=== PATIENT | female | born 1940 | race Caucasian/White ===

== ENCOUNTER 2019-05-16 23:45 | Inpatient (IN) | payer MEDICARE ==
[~2019-05-16] VITALS: Ht 172.7 cm; Wt 77.1 kg
[2019-05-17] MEDS ORDERED: HYDR-3326 PO (00:14)
[2019-05-17] MEDS ORDERED: ACET-2154 PO (00:14)
[2019-05-17] MEDS ORDERED: OLAN15TA3 PO (00:14)
--- NOTE | 2019-05-17 00:45 | NUR ---
HAND OFF AND SBAR GIVEN TO KAITLIN SALVADOR ([facility]) PT WILL BE ADMITTED UNDER DR PONCE MRSA SWAB DONE. PT IS COMPLIANT, DENIES SI/HI, CALM AND COMPLIANT TRANSPORT TO ROOM ACCOMPANIED BY ER STAFF
[2019-05-17 02:20] VITALS: BP 147/69
--- NOTE | 2019-05-17 03:25 | NUR ---
received to care, from the emergency room, on a 72 hour hold, for gravely disabled, a transfer from [facility], in [place]. according to the hold, she came to the hospital, and appeared "grossly disorganized and psychotic". she had no viable self care plan, and was deemed by the sash installer to be unable to care for self, with out "adequate assistance". upon arrival on the unit, she was cooperative with interview, and assessment. denied si,or desire to harm self/others. pts rights book was given. pt was advised of [facility]. she stated she stays at a hotel by herself, and went to the hospital, after falling down. she denied any psychotic sx. after being interviewed, she was assisted to bed. currently appears to be asleep. no distress noted.
[2019-05-17] MEDS ORDERED: ACETAMINOPHEN 325 MG TABLET PO PRN ×2 (04:15→13:00)
[2019-05-17] MEDS ORDERED: MAG HYDROX/AL HYDROX/SIMETH 30 ML LIQUID UDC PO PRN (04:15)
[2019-05-17] MEDS ORDERED: CLONAZEPAM 0.5 MG TABLET PO PRN (04:15)
[2019-05-17] MEDS ORDERED: TEMAZEPAM 7.5 MG CAPSULE PO PRN (04:15)
--- NOTE | 2019-05-17 06:00 | NUR ---
slept 2.25 hours, total. continues to sleep. no distress noted.
[2019-05-17 07:30] VITALS: BP 164/76
[2019-05-17 16:00] VITALS: BP 122/65
[2019-05-17 20:55] VITALS: BP 121/60
--- NOTE | 2019-05-17 21:00 | NUR ---
Patient C/O lower back pain 01/24. Offered [place] 1 Tab PO PRN. Patient is alert and oriented. Cooperative and calm with care. Educated patient on her night medication. Participated in the plan of care.
[2019-05-17] MEDS: OLANZAPINE ZYDIS 5 MG TAB.RAPDIS PO SCH (21:22)
[2019-05-17] MEDS: HYDROCODONE/APAP 5-325MG TABLET PO PRN (21:30)
[2019-05-18] MEDS: HYDROCODONE/APAP 5-325MG TABLET PO PRN (06:27)
[2019-05-18 07:30] VITALS: BP 115/62
[2019-05-18 07:31] LABS: BASOPHILS % (AUTO) 0.7 % (0.0-2.0); EOSINOPHILS # (AUTO) 0.2 K/uL (0.0-0.7); EOSINOPHILS % (AUTO) 3.1 % (0.0-7.0); HEMATOCRIT 36.7 % (31.2-41.9); HEMOGLOBIN 12.3 g/dL (10.9-14.3); LYMPHOCYTES # (AUTO) 2.5 K/uL (20.0-40.0); LYMPHOCYTES % (AUTO) 39.8 % (20.5-51.5); MEAN CORPUSCULAR HEMOGLOBIN 28.5 uug (24.7-32.8); MEAN CORPUSCULAR HGB CONC 34 g/dL (32.3-35.6); MEAN CORPUSCULAR VOLUME 84.8 fL (75.5-95.3); MONOCYTES # (AUTO) 0.6 K/uL (2.0-10.0); MONOCYTES % (AUTO) 9.1 % (0.0-11.0); NEUTROPHILS % (AUTO) 47.3 % (38.5-71.5); PLATELET COUNT (AUTO) 167 K/uL (179-408); RED BLOOD CELL COUNT(AUTO) 4.32 MIL/uL (3.63-4.92); WHITE BLOOD COUNT (AUTO) 6.2 K/uL (3.8-11.8)
[2019-05-18 07:46] LABS: CREATININE 0.7 mg/dL (0.6-1.3); MAGNESIUM 1.8 mg/dL (1.8-2.4); PHOSPHOROUS 3.8 mg/dL (2.5-4.9); POTASSIUM 3.7 mmol/L (3.5-5.1)
[2019-05-18 07:51] LABS: THYROID STIMULATING HORMONE 2.121 mIU/mL (0.358-3.740)
[2019-05-18 16:00] VITALS: BP 133/71
[2019-05-18] MEDS: CIPROFLOXACIN HCL 250 MG TABLET PO SCH (17:27)
[2019-05-18] MEDS: METFORMIN HCL 500 MG TABLET PO SCH (17:28)
[2019-05-18] MEDS: OLANZAPINE ZYDIS 5 MG TAB.RAPDIS PO SCH (20:33)
[2019-05-18 20:50] VITALS: BP 144/63
[2019-05-19] MEDS: HYDROCODONE/APAP 5-325MG TABLET PO PRN ×2 (02:18→15:41)
[2019-05-19 08:05] VITALS: BP 113/65
[2019-05-19] MEDS: CIPROFLOXACIN HCL 250 MG TABLET PO SCH ×2 (08:39→16:46)
[2019-05-19] MEDS: METFORMIN HCL 500 MG TABLET PO SCH ×2 (08:39→17:20)
[2019-05-19] MEDS: MAGNESIUM HYDROXIDE 30 ML LIQUID UDC PO PRN ×2 (08:47→21:49)
[2019-05-19 15:55] VITALS: BP 135/88
[2019-05-19] MEDS: OLANZAPINE ZYDIS 5 MG TAB.RAPDIS PO SCH (20:07)
[2019-05-19 20:38] VITALS: BP 119/70
[2019-05-20] MEDS: HYDROCODONE/APAP 5-325MG TABLET PO PRN ×2 (00:13→21:12)
--- NOTE | 2019-05-20 06:48 | NUR ---
Received Pi in bed awake and A+Ox3. Expresses flat affect and depressed mood. Isolative and seclusive, remains in her room for most of the shift. Initially refused HS Zyprexa stating, "I've never taken any meds and this makes me feel so tired." Pt was educated on risks, benefits, and reportable s/e. Pt also encouraged to speak to her psychiatrist regarding her dosage and concerns. Pt took the medication after encouragement and education provided. Denies SI/HI/AH/VH. C/o constipation, prune juice and MOM provided per request. VS stable denies pain. C/o insomnia and restlessness Restoril 7.5mg administered with good effect.
[2019-05-20 07:52] VITALS: BP 121/63
[2019-05-20] MEDS: METFORMIN HCL 500 MG TABLET PO SCH ×2 (08:19→17:09)
[2019-05-20] MEDS: CIPROFLOXACIN HCL 250 MG TABLET PO SCH ×2 (08:19→17:09)
[2019-05-20 15:55] VITALS: BP 143/80
[2019-05-20] MEDS: LIDOCAINE 5% PATCH TD SCH (18:25)
[2019-05-20 20:00] VITALS: BP 147/63
[2019-05-20] MEDS: OLANZAPINE ZYDIS 5 MG TAB.RAPDIS PO SCH (21:05)
--- NOTE | 2019-05-20 22:00 | NUR ---
received to care, asleep,in bed, but easy to awaken,and pleasant upon approach. PRN norco given at 2111, for lower back pain. as of 2199, she appears to be asleep. no distress noted. will continue to monitor closely.
--- NOTE | 2019-05-21 06:00 | NUR ---
slept 8.0 hours, total. continues to sleep. no distress noted.
[2019-05-21 07:30] VITALS: BP 138/91
[2019-05-21] MEDS: METFORMIN HCL 500 MG TABLET PO SCH ×2 (08:12→17:02)
[2019-05-21] MEDS: CIPROFLOXACIN HCL 250 MG TABLET PO SCH (08:12)
[2019-05-21 16:00] VITALS: BP 149/71
[2019-05-21] MEDS: LIDOCAINE 5% PATCH TD SCH (16:58)
[2019-05-21] MEDS: HYDROCODONE/APAP 5-325MG TABLET PO PRN (18:22)
[2019-05-21] MEDS: OLANZAPINE ZYDIS 5 MG TAB.RAPDIS PO SCH (20:47)
[2019-05-21 20:57] VITALS: BP 124/61
[2019-05-22] MEDS: HYDROCODONE/APAP 5-325MG TABLET PO PRN ×2 (00:04→20:58)
--- NOTE | 2019-05-22 05:24 | NUR ---
Patient slept 5.30 hours so far. Medicated once in the night for back pain. Medication was effective. No acute distress noted and patient remains asleep at this time.
[2019-05-22 07:30] VITALS: BP 110/59
[2019-05-22] MEDS: DOCUSATE SODIUM 100 MG CAPSULE PO SCH (09:05)
[2019-05-22] MEDS: METFORMIN HCL 500 MG TABLET PO SCH ×2 (09:05→16:50)
[2019-05-22 16:00] VITALS: BP 133/87
[2019-05-22] MEDS: LIDOCAINE 5% PATCH TD SCH (16:50)
[2019-05-22] MEDS: OLANZAPINE ZYDIS 5 MG TAB.RAPDIS PO SCH (20:54)
--- NOTE | 2019-05-22 21:57 | NUR ---
PATIENT RECEIVED IN BED AWAKE. PATIENT IS ISOLATIVE/WITHDRAWN. PATIENT IS CALM AND COOPERATIVE. PATIENT IS EASILY AGITATED IS REDIRECTABLE. PATIENT COMPLAINT WITH MEDICATION. PATIENT STATES 9/10 BACK PAIN, PAIN MEDICATION GIVEN ORDERED. NO AGGRESSIVE OR COMBATIVE BEHAVIOR NOTED WILL CONTINUE TO MONITOR. BED IN LOWEST POSITION, BED LOCKED, AND BED ALARM ON WHILE IN BED.
[2019-05-23 07:30] VITALS: BP 122/65
[2019-05-23] MEDS: DOCUSATE SODIUM 100 MG CAPSULE PO SCH (08:42)
[2019-05-23] MEDS: METFORMIN HCL 500 MG TABLET PO SCH ×2 (08:42→17:07)
[2019-05-23] MEDS: LIDOCAINE 5% PATCH TD SCH (17:07)
[2019-05-23] MEDS: OLANZAPINE ZYDIS 5 MG TAB.RAPDIS PO SCH (20:32)
[2019-05-23 20:44] VITALS: BP 122/69
[2019-05-23] MEDS: HYDROCODONE/APAP 5-325MG TABLET PO PRN (20:45)
--- NOTE | 2019-05-24 06:22 | NUR ---
Patient slept 9.30 hours. Still asleep. No distress noted. No issues during the night.
[2019-05-24 07:57] VITALS: BP 121/69
[2019-05-24] MEDS: DOCUSATE SODIUM 100 MG CAPSULE PO SCH (08:56)
[2019-05-24] MEDS: METFORMIN HCL 500 MG TABLET PO SCH ×2 (08:56→17:04)
[2019-05-24 16:31] VITALS: BP 120/57
[2019-05-24] MEDS: LIDOCAINE 5% PATCH TD SCH (17:04)
[2019-05-24] MEDS: MAGNESIUM HYDROXIDE 30 ML LIQUID UDC PO PRN (20:23)
[2019-05-24] MEDS: OLANZAPINE ZYDIS 5 MG TAB.RAPDIS PO SCH (20:23)
[2019-05-24 20:45] VITALS: BP 113/63
[2019-05-24] MEDS: HYDROCODONE/APAP 5-325MG TABLET PO PRN (22:56)
--- NOTE | 2019-05-25 06:15 | NUR ---
Patient slept 6.3 hours . Still sleeping. No distress during the night.
[2019-05-25 07:53] VITALS: BP 131/61
[2019-05-25] MEDS: METFORMIN HCL 500 MG TABLET PO SCH ×2 (08:51→17:09)
[2019-05-25] MEDS: DOCUSATE SODIUM 100 MG CAPSULE PO SCH (08:51)
[2019-05-25] MEDS: LIDOCAINE 5% PATCH TD SCH (16:29)
[2019-05-25 16:50] VITALS: BP 143/70
[2019-05-25 20:21] VITALS: BP 147/69
[2019-05-25] MEDS: OLANZAPINE ZYDIS 5 MG TAB.RAPDIS PO SCH (20:27)
[2019-05-25] MEDS: HYDROCODONE/APAP 5-325MG TABLET PO PRN (20:37)
--- NOTE | 2019-05-25 22:52 | NUR ---
RECEIVED PATIENT IN BED AWAKE. PATIENT IS ISOLATIVE,WITHDRAWN BUT CALM AND COOPERATIVE. OCCASIONALLY IRRITATED BUT RE DIRECTABLE. SHE IS COMPLAINT WITH MEDICATION.COMPLAINED OF LOWER BACK ACHE RATED 5/10 AND REQUESTED FOR NORCO. SAME GIVEN ORDERED WITH FAIRLY GOOD EFFECT. VISUAL CHECKS MADE ON HER FOR SAFETY. WILL CONTINUE TO MONITOR. BED IN LOWEST POSITION, BED LOCKED, AND BED ALARM ON WHILE IN BED.
--- NOTE | 2019-05-26 06:40 | NUR ---
SLEPT APPROX.08;30 HOURS
[2019-05-26 07:30] VITALS: BP 111/62
[2019-05-26] MEDS: DOCUSATE SODIUM 100 MG CAPSULE PO SCH (09:12)
[2019-05-26] MEDS: METFORMIN HCL 500 MG TABLET PO SCH ×2 (09:13→18:24)
[2019-05-26 15:54] VITALS: BP 146/86
[2019-05-26] MEDS: MAGNESIUM HYDROXIDE 30 ML LIQUID UDC PO PRN (16:28)
[2019-05-26] MEDS: LIDOCAINE 5% PATCH TD SCH (16:29)
[2019-05-26] MEDS: OLANZAPINE ZYDIS 5 MG TAB.RAPDIS PO SCH (20:08)
[2019-05-26] MEDS: HYDROCODONE/APAP 5-325MG TABLET PO PRN (21:14)
[2019-05-26 22:38] VITALS: BP 139/72
--- NOTE | 2019-05-27 06:47 | NUR ---
END OF SHIFT REPORT Transfer to 325 as GPS overflow with 1:1 sitter at bedside; pt slept well in between care; c/o pain x1 and [place] given; pt requested for restoril and slept 5 hours and 45 mins; assisted to meet hygiene needs; continue to monitor;
[2019-05-27] MEDS: METFORMIN HCL 500 MG TABLET PO SCH ×2 (08:29→18:58)
[2019-05-27] MEDS: DOCUSATE SODIUM 100 MG CAPSULE PO SCH (08:29)
--- NOTE | 2019-05-27 09:40 | NUR ---
Patient is AO2-3, no distress, cooperative with treatment, 1:1 sitter at bedside; continue to monitor;
[2019-05-27 11:31] VITALS: BP 112/61
--- NOTE | 2019-05-27 12:14 | NUR ---
FIREARMS REPORT: Material Specialist completed and submitted a [employer] firearms report for [address] Disability certification. A copy of report has been placed in patient chart.
[2019-05-27 16:03] VITALS: BP 115/51
[2019-05-27] MEDS: LIDOCAINE 5% PATCH TD SCH (16:15)
[2019-05-27 19:28] VITALS: BP 120/49
[2019-05-27] MEDS ORDERED: DEXTROSE 50% 50 ML DISP.SYRIN IV PRN (19:30)
--- NOTE | 2019-05-27 20:00 | NUR ---
Patient received awake in bed, resting comfortably with 1:1 sitter in room. Patient is alert/oriented x3 and is complaining of 6/10 pain related to her diagnosis of chronic back pain. All safety and fall precaution measures are in place. Will continue to monitor.
--- NOTE | 2019-05-27 20:30 | NUR ---
Independent living communications consultant is here, at request of SW, to evaluate patient for placement in assisted living/independent living facility.
[2019-05-27] MEDS: HYDROCODONE/APAP 5-325MG TABLET PO PRN (21:25)
[2019-05-27] MEDS: OLANZAPINE ZYDIS 5 MG TAB.RAPDIS PO SCH (21:25)
[2019-05-27] MEDS: BLOOD SUGAR DIAGNOSTIC 1 EACH STRIP VI SCH (21:31)
--- NOTE | 2019-05-27 22:40 | NUR ---
Diet changed from Regular to CCHO 60gm protein due to diagnosis of diabetes mellitus.
[2019-05-28] MEDS: BLOOD SUGAR DIAGNOSTIC 1 EACH STRIP VI SCH ×4 (06:24→20:32)
--- NOTE | 2019-05-28 07:00 | NUR ---
Patient slept comfortably throughout night with 1:1 sitter at bedside. Complaint of pain was addressed with prescribed analgesics. Patient was compliant with all aspects of care and medication regimen. All safety and fall precaution measures remain in place. .
--- NOTE | 2019-05-28 07:18 | NUR ---
Received patient in bed, asleep and easy to wake up . Denies sob or pain at this time. All needs met. Safety and fall precautions in place. Call light in reach, bed in low position and locked. Will continue to monitor.
[2019-05-28 07:20] VITALS: BP 104/55
[2019-05-28] MEDS ORDERED: METFORMIN HCL 500 MG TABLET PO SCH (08:00)
[2019-05-28] MEDS: DOCUSATE SODIUM 100 MG CAPSULE PO SCH (09:30)
[2019-05-28] MEDS: METFORMIN HCL 500 MG TABLET PO SCH ×2 (09:30→16:56)
--- NOTE | 2019-05-28 10:58 | NUR ---
Discharge Planning: Patient was evaluated by Assisted Living placement Agency - [facility] [[phone]]. Per Admissions - Eduardo, patient was accepted for Assisted Living Placement at [facility] [[address] [place] [address]]. Patient scheduled for tentative dc tomorrow at 11:00a. Gayathri, Director [[phone]] at [facility], will be ready to receive patient. This radio script writer informed nursing - Mary Jane and darrick request for home health referral.
[2019-05-28 15:00] VITALS: BP 113/55
[2019-05-28] MEDS: LIDOCAINE 5% PATCH TD SCH (16:56)
[2019-05-28] MEDS: INSULIN REGULAR, HUMAN 300 UNIT/3 ML VIAL SQ PRN ×2 (17:00→20:42)
--- NOTE | 2019-05-28 18:45 | NUR ---
At this time patient brought down to room 139B. Patient AAOX4. placed in bed with assistance. Addendum: 05/28/19 at 1858 by SHANTEL WOLFE RN Care plan will be endorse to incoming shift.
--- NOTE | 2019-05-28 18:49 | NUR ---
PATIENT TRANSFERED TO [facility]. REPORT GIVEN TO DARLING.
[2019-05-28 19:51] VITALS: BP 147/69
[2019-05-28] MEDS: OLANZAPINE ZYDIS 5 MG TAB.RAPDIS PO SCH (20:06)
[2019-05-28] MEDS: HYDROCODONE/APAP 5-325MG TABLET PO PRN (20:49)
--- NOTE | 2019-05-28 22:12 | NUR ---
Received patient in bed, asleep but easily arouse to touch and sound. calm and cooperative. med compliant. no behavioral issue at this time. will continue to monitor patient safety.
--- NOTE | 2019-05-29 05:44 | NUR ---
Patient slept 7 hours last night, no behavior issue.
[2019-05-29] MEDS: BLOOD SUGAR DIAGNOSTIC 1 EACH STRIP VI SCH ×2 (06:34→12:16)
[2019-05-29 07:30] VITALS: BP 136/65
--- NOTE | 2019-05-29 08:11 | NUR ---
Discharge note Patient will be discharged to [facility] [[address] [place] [address]; Ph. [phone]]. Transportation will be provided via [employer] [id number] service [[phone]] at 11:00am. Patient is alert and oriented x3-4, denies any suicidal or homicidal ideation, and is aware and agreeable with discharge plan. Patient has no next of kin to identify. However, patient�s belongings are currently located at a [facility] in [place]. Sanitation Manager called [facility] logistics administrator- Sue [[phone]] who is aware of patient�s next destination and agreed to bring belongings to patient. Home health referral was submitted to different home health facilities [[facility], [facility], and [facility], but patient does not have coverage. Patient was provided with referral [facility] [ [place] [address]; ]. Patient was also provided with contact information for Medicare & Social Security [ ].
[2019-05-29] MEDS: DOCUSATE SODIUM 100 MG CAPSULE PO SCH (08:17)
[2019-05-29] MEDS: METFORMIN HCL 500 MG TABLET PO SCH (08:17)
[2019-05-29] MEDS: INSULIN REGULAR, HUMAN 300 UNIT/3 ML VIAL SQ PRN (12:21)
--- NOTE | 2019-05-29 14:30 | NUR ---
Patient is discharged via set transportation, belongings given and dc papers signed. Took patient outside via wheel chair Patient condition is Stable
== END 2019-05-29 14:30 | disposition home health service (06) | DRG 885 ==
LOC: ER 23:51 → GPS 05-17 01:00 → ER 05-17 01:14 → GPS 05-22 20:22 → MEDSURG3 05-26 20:44 → GPSOV3 05-26 21:20 → GPS 05-28 18:24
PROVIDERS: ADMIT Psychiatry & Neurology Psychiatry; ATTEND Registered Nurse
DX: F20.0 Paranoid schizophrenia (principal); E11.65 Type 2 diabetes mellitus with hyperglycemia; N39.0 Urinary tract infection, site not specified; Z59.0 Homelessness; M79.7 Fibromyalgia; G89.29 Other chronic pain; D69.6 Thrombocytopenia, unspecified; Z87.440 Personal history of urinary (tract) infections
CPT/HCPCS: 36415; 83735; 84100; 84443; 85025; A4663; J1815

== ENCOUNTER 2021-08-16 20:46 | Inpatient (IN) | payer MEDICARE, OTHER ==
[~2021-08-16] VITALS: Ht 162.6 cm; Wt 80.3 kg
[~2021-08-16 20:46] MED LIST: ACET-2154 PO; HYDR-3326 PO
[2021-08-16] MEDS ORDERED: Z GUARD REMEDY PASTE 57 GM TUBE TOP PRN (21:00)
[2021-08-16] MEDS ORDERED: BISA10SU61 RC (21:12)
[2021-08-16] MEDS ORDERED: MAG30ORA14 PO (21:26)
[2021-08-16] MEDS ORDERED: INSU100V28 SQ (21:26)
[2021-08-16] MEDS ORDERED: DEXT50DI8 IV (21:26)
[2021-08-16] MEDS ORDERED: HYDR-4209 PO (21:26)
[2021-08-16] MEDS ORDERED: HYDR-4075 PO (21:26)
[2021-08-16] MEDS ORDERED: MAGN400O6 PO (21:26)
[2021-08-16] MEDS ORDERED: BLOO-668 IN (21:26)
[2021-08-16] MEDS ORDERED: NORM50IV2 IV (21:26)
[2021-08-16] MEDS ORDERED: DOCU-141 PO (21:26)
[2021-08-16] MEDS ORDERED: SENN-18 PO (21:26)
[2021-08-16] MEDS ORDERED: ONDA4TAB11 PO (21:26)
[2021-08-16] MEDS ORDERED: CEFT1VIA15 IV (21:26)
[2021-08-16] MEDS ORDERED: VALS160T2 PO (21:26)
[2021-08-16] MEDS ORDERED: ZOLP5TAB2 PO (21:26)
[2021-08-16] MEDS ORDERED: ENOX40DI SQ (21:26)
[2021-08-16] MEDS ORDERED: PANT40TA2 PO (21:26)
[2021-08-16 21:31] VITALS: BP 142/58
--- NOTE | 2021-08-16 22:28 | NUR ---
Pt arrived in the unit for rehab admission at 2039 from [facility] via gurney. Admitting Dx: R hip fx, s/p R hip closed percutaneous pinning on 08/13/2021. On 2L O2 via NC, no acute distress noted. Denies pain/ discomfort at this time. Pt has x1 right hip surgical incision, no discharge noted. Dressing changed. Pt has Harrell catheter in place. Notified Dr. Bansal of admission. Notified Dr. Ng and requested for Digital Reasoning and MD stated that he will do it. Safety measures maintained. Bed alarm on. Call light within reach. Will continue to monitor.
[2021-08-16] MEDS ORDERED: BISACODYL 10 MG SUPP.RECT RC PRN (23:00)
[2021-08-16] MEDS ORDERED: HYDROCODONE/APAP 5-325MG TABLET PO PRN (23:00)
[2021-08-16] MEDS ORDERED: CEFTRIAXONE 1 G in IV DEXTROSE 5% 50 ML IV SCH (23:00)
[2021-08-16] MEDS ORDERED: DEXTROSE 50% 50 ML DISP.SYRIN IV SCH (23:00)
[2021-08-16] MEDS ORDERED: ONDANSETRON ODT 4 MG TAB.RAPDIS SL PRN (23:00)
[2021-08-16] MEDS ORDERED: ACETAMINOPHEN 325 MG TABLET-SA PATIENTS-PAIN ONLY PO PRN (23:00)
[2021-08-16] MEDS: DOCUSATE SODIUM 100 MG CAPSULE PO SCH (23:26)
[2021-08-16] MEDS: BLOOD SUGAR DIAGNOSTIC 1 EACH STRIP VI SCH (23:26)
[2021-08-16] MEDS ORDERED: INSULIN REGULAR, HUMAN 300 UNIT/3 ML VIAL SQ PRN (23:30)
[2021-08-16] MEDS: ENOXAPARIN SODIUM 40 MG/0.4 ML DISP.SYRIN SQ SCH (23:33)
[2021-08-16] MEDS ORDERED: DEXTROSE 50% 50 ML DISP.SYRIN IV PRN (23:45)
[2021-08-16] MEDS: INSULIN REGULAR, HUMAN 300 UNIT/3 ML VIAL SQ PRN (23:59)
[2021-08-17] MEDS: HYDROCODONE/APAP 5-325MG TABLET PO PRN ×3 (00:13→23:26)
[2021-08-17 04:15] VITALS: BP 118/50
[2021-08-17] MEDS: PANTOPRAZOLE SODIUM 40 MG TABLET.DR PO SCH ×2 (06:10→06:12)
[2021-08-17] MEDS: BLOOD SUGAR DIAGNOSTIC 1 EACH STRIP VI SCH ×4 (06:31→20:17)
[2021-08-17 06:53] LABS: HEMATOCRIT 35.2 % (31.2-41.9); MEAN CORPUSCULAR HEMOGLOBIN 29.1 uug (24.7-32.8); MEAN CORPUSCULAR VOLUME 86.3 fL (75.5-95.3); PLATELET COUNT (AUTO) 171 K/uL (179-408)
[2021-08-17 07:26] LABS: THYROID STIMULATING HORMONE 1.346 mIU/mL (0.358-3.740)
[2021-08-17] MEDS ORDERED: BLOOD SUGAR DIAGNOSTIC 1 EACH STRIP VI SCH (07:30)
[2021-08-17] MEDS ORDERED: PANTOPRAZOLE SODIUM 40 MG TABLET.DR PO SCH (07:30)
[2021-08-17 07:43] LABS: BILIRUBIN,TOTAL 0.6 mg/dL (0.2-1.0); CREATININE 0.8 mg/dL (0.6-1.3); MAGNESIUM 2.1 mg/dL (1.8-2.4); PHOSPHOROUS 3.6 mg/dL (2.5-4.9); POTASSIUM 3.9 mmol/L (3.5-5.1); TOTAL PROTEIN, SERUM 6.9 g/dL (6.4-8.2)
[2021-08-17 07:52] VITALS: BP 125/53
[2021-08-17] MEDS: CEFTRIAXONE 1 G in IV DEXTROSE 5% 50 ML IV SCH (08:30)
--- NOTE | 2021-08-17 08:30 | NUR ---
Receive PT resting in bed AAOx4 Dx: R hip fx, s/p R hip closed percutaneous pinning on 08/13/2021. On 2L O2 via NC, no acute distress noted 02 sat 99 %. C/O of pain/ at this time. Pt has x1 right hip surgical incision, no discharge noted. Dressing intact Pt has Harrell catheter in place draining well . Safety measures maintained. Bed alarm on. Call light within reach. Will continue to monitor.
[2021-08-17] MEDS: VALSARTAN 160 MG TABLET PO SCH (08:31)
[2021-08-17] MEDS: DOCUSATE SODIUM 100 MG CAPSULE PO SCH ×2 (08:31→20:10)
[2021-08-17] MEDS: INSULIN REGULAR, HUMAN 300 UNIT/3 ML VIAL SQ PRN ×3 (12:12→20:19)
[2021-08-17] MEDS: SENNOSIDES 1 TABLET PO PRN (12:50)
--- NOTE | 2021-08-17 15:08 | NUR ---
INTERDISCIPLINARY TEAM CONFERENCE
[2021-08-17 16:00] VITALS: BP 122/52
--- NOTE | 2021-08-17 18:28 | NUR ---
patient remained stable through the shift. continue on 02 @ 2L/MIN via nc. 02 sating 99%.F/C in place draining well Assisted with all her needs. Kept call light within reach. All due meds given medicated with senna x 1 . No distress identified. Safety measures maintained. No pain identified. Will endorse to the next shift for continuity of care.
[2021-08-17 20:05] VITALS: BP 127/58
[2021-08-17] MEDS: ENOXAPARIN SODIUM 40 MG/0.4 ML DISP.SYRIN SQ SCH (20:11)
[2021-08-18] MEDS: ZOLPIDEM 5 MG TABLET PO PRN ×2 (00:53→21:22)
[2021-08-18 04:13] VITALS: BP 120/65
[2021-08-18] MEDS: PANTOPRAZOLE SODIUM 40 MG TABLET.DR PO SCH (06:33)
[2021-08-18] MEDS: BLOOD SUGAR DIAGNOSTIC 1 EACH STRIP VI SCH ×4 (06:34→20:16)
--- NOTE | 2021-08-18 06:41 | NUR ---
Pt slept throughout the night, easily arousable for care and able to make needs known. On O2 at 2lpm via NC saturating at 95%. Medicated pain x1 and noted effective. Ambien PRN also given. All needs attended. Call light placed within reach. Frequent visual checks done. Will endorse to next shift for continuity of care.
[2021-08-18 08:00] VITALS: BP 121/53
[2021-08-18] MEDS: DOCUSATE SODIUM 100 MG CAPSULE PO SCH ×2 (09:30→20:08)
[2021-08-18] MEDS: CYANOCOBALAMIN 1000 MCG/ML VIAL IM SCH (09:30)
[2021-08-18] MEDS: CEFTRIAXONE 1 G in IV DEXTROSE 5% 50 ML IV SCH (09:31)
[2021-08-18] MEDS: VALSARTAN 160 MG TABLET PO SCH (09:32)
[2021-08-18] MEDS: HYDROCODONE/APAP 5-325MG TABLET PO PRN (10:35)
[2021-08-18] MEDS: INSULIN REGULAR, HUMAN 300 UNIT/3 ML VIAL SQ PRN ×3 (12:06→20:18)
[2021-08-18 16:00] VITALS: BP 96/54
[2021-08-18 20:00] VITALS: BP 135/52
[2021-08-18] MEDS: OLANZAPINE 5 MG TABLET PO SCH (20:08)
[2021-08-18] MEDS: ENOXAPARIN SODIUM 40 MG/0.4 ML DISP.SYRIN SQ SCH (20:10)
[2021-08-19] MEDS: MAGNESIUM HYDROXIDE 30 ML LIQUID UDC PO PRN (00:18)
[2021-08-19] MEDS: HYDROCODONE/APAP 5-325MG TABLET PO PRN ×4 (00:18→21:37)
[2021-08-19 04:25] VITALS: BP 119/47
--- NOTE | 2021-08-19 05:17 | NUR ---
Pt slept intermittently throughout the night, easily arousable for care and able to make needs known. On room air saturating at 95%. Medicated pain x1 and noted effective. MOM PRN given, no bowel movement noted yet. All needs attended. Call light placed within reach. Frequent visual checks done. Will endorse to next shift for continuity of care. Addendum: 08/19/21 at 0733 by CIRO VILLASENOR RN Initial saturation 90%, picks up quickly to 95-96%.
[2021-08-19] MEDS: PANTOPRAZOLE SODIUM 40 MG TABLET.DR PO SCH (06:33)
[2021-08-19] MEDS: BLOOD SUGAR DIAGNOSTIC 1 EACH STRIP VI SCH ×4 (06:33→20:39)
[2021-08-19 07:31] VITALS: BP 130/55
[2021-08-19] MEDS: DOCUSATE SODIUM 100 MG CAPSULE PO SCH ×2 (08:41→20:25)
[2021-08-19] MEDS: VALSARTAN 160 MG TABLET PO SCH (08:42)
[2021-08-19] MEDS: CYANOCOBALAMIN 1000 MCG/ML VIAL IM SCH (08:42)
[2021-08-19] MEDS: INSULIN REGULAR, HUMAN 300 UNIT/3 ML VIAL SQ PRN ×2 (11:47→20:41)
--- NOTE | 2021-08-19 14:02 | NUR ---
INDIVIDUALIZED PLAN OF CARE
[2021-08-19 15:30] VITALS: BP 122/78
--- NOTE | 2021-08-19 18:30 | NUR ---
Patient remains alert, oriented x4, not in any form of distress, on room air. She complained of pain on the right hip, given PRN pain medication as ordered with noted relief. Patient participated with PT and OT. Assisted with her needs promptly. Call light and frequently used items placed within patient's reach.
[2021-08-19] MEDS: OLANZAPINE 5 MG TABLET PO SCH (20:25)
[2021-08-19] MEDS: ENOXAPARIN SODIUM 40 MG/0.4 ML DISP.SYRIN SQ SCH (20:26)
[2021-08-19 20:52] VITALS: BP 139/57
[2021-08-20 04:47] VITALS: BP 156/59
--- NOTE | 2021-08-20 06:24 | NUR ---
Received pt awake on bed with no respiratory distress noted. Dulcolax supp given at start of shift, BM x1 noted. Medicated pain x1 and noted effective. All needs attended. Call light placed within reach. Frequent visual checks done. Will endorse to next shift for continuity of care.
--- NOTE | 2021-08-20 06:32 | NUR ---
On room air saturating at 95%, would go down to 90-91% but picks up right away.
[2021-08-20] MEDS: PANTOPRAZOLE SODIUM 40 MG TABLET.DR PO SCH (06:34)
[2021-08-20] MEDS: BLOOD SUGAR DIAGNOSTIC 1 EACH STRIP VI SCH ×4 (06:34→21:13)
[2021-08-20 08:00] VITALS: BP 162/61
[2021-08-20] MEDS: CYANOCOBALAMIN 1000 MCG/ML VIAL IM SCH (08:48)
[2021-08-20] MEDS: DOCUSATE SODIUM 100 MG CAPSULE PO SCH ×3 (08:48→21:16)
[2021-08-20] MEDS: VALSARTAN 160 MG TABLET PO SCH (08:51)
[2021-08-20] MEDS: INSULIN REGULAR, HUMAN 300 UNIT/3 ML VIAL SQ PRN ×4 (08:53→21:15)
[2021-08-20] MEDS: HYDROCODONE/APAP 5-325MG TABLET PO PRN ×2 (11:42→22:47)
[2021-08-20 12:02] VITALS: BP 91/40
[2021-08-20 15:56] VITALS: BP 112/45
[2021-08-20 20:15] VITALS: BP 143/62
[2021-08-20] MEDS: OLANZAPINE 5 MG TABLET PO SCH (21:16)
[2021-08-20] MEDS: ENOXAPARIN SODIUM 40 MG/0.4 ML DISP.SYRIN SQ SCH (21:17)
--- NOTE | 2021-08-20 23:11 | NUR ---
Patient awake and able to make needs known. no respiratory distress noted. C/o rt hip pain Medicated pain x1 and noted effective. Rt hip dressing changed.No bleeding noted.F/c draining well with yellow urine output.All needs attended. Call light placed within reach. Will endorse to next shift for continuity of care.
[2021-08-21 04:12] VITALS: BP 128/54
[2021-08-21] MEDS: PANTOPRAZOLE SODIUM 40 MG TABLET.DR PO SCH (06:33)
[2021-08-21] MEDS: BLOOD SUGAR DIAGNOSTIC 1 EACH STRIP VI SCH ×4 (06:36→21:17)
[2021-08-21] MEDS: DOCUSATE SODIUM 100 MG CAPSULE PO SCH ×2 (10:09→21:08)
[2021-08-21] MEDS: CYANOCOBALAMIN 1000 MCG/ML VIAL IM SCH (10:10)
[2021-08-21] MEDS: VALSARTAN 160 MG TABLET PO SCH (10:10)
[2021-08-21] MEDS: HYDROCODONE/APAP 5-325MG TABLET PO PRN (10:24)
[2021-08-21 12:00] VITALS: BP 120/51
[2021-08-21 16:42] VITALS: BP 129/60
--- NOTE | 2021-08-21 19:00 | NUR ---
Patient with acosta catheter, draining clear yellow urine.
--- NOTE | 2021-08-21 19:00 | NUR ---
Received patient awake in bed. AOX4. IV on L hand patent and intact. On room air, saturating at 92%. Patient denies chest pain, SOB or dizziness, however report pain of 3/10 on right hip, pt refused to take medication, diverted to non-pharmacological techniques instead. Right hip dressing clean and intact. HS accuchek done, showing results of 135mg/dl, patient refused to insulin. Safety precautions and safety measures initiated. Bed in locked, call light button and frequently used medications within reach. Will continue to monitor.
[2021-08-21 20:09] VITALS: BP 145/58
[2021-08-21] MEDS: OLANZAPINE 5 MG TABLET PO SCH (21:08)
[2021-08-21] MEDS: ENOXAPARIN SODIUM 40 MG/0.4 ML DISP.SYRIN SQ SCH (21:09)
[2021-08-21] MEDS: INSULIN REGULAR, HUMAN 300 UNIT/3 ML VIAL SQ PRN (21:19)
[2021-08-22 04:12] VITALS: BP 119/48
[2021-08-22] MEDS: PANTOPRAZOLE SODIUM 40 MG TABLET.DR PO SCH (06:45)
[2021-08-22] MEDS: BLOOD SUGAR DIAGNOSTIC 1 EACH STRIP VI SCH ×4 (06:57→20:03)
--- NOTE | 2021-08-22 07:05 | NUR ---
Asked patient if she wants her acosta catheter removed and be switched to a diaper. Patient refused despite being taught the risk factors of having a prolonged acosta catheter. Endorsed to the day shift.
--- NOTE | 2021-08-22 07:05 | NUR ---
Patient advised she took a medication to help with her constipation. Patient advised that it is the only medication that will help with her bowel movement. Medication is [place], she takes 2 pills a day. Endorsed to day shift to notify doctor.
--- NOTE | 2021-08-22 07:05 | NUR ---
Patient slept through the night with no complaints. All due medications were given as ordered. All needs were attended to and met. Accuchek taken, showing results of 141mg/dl. Safety precautions and comfort measures maintained. Will endorse to day shift.
--- NOTE | 2021-08-22 07:45 | NUR ---
RECEIVED PATIENT IN BED AWAKE ALERT AND ORIENTED DENIES PAIN OR DISCOMFORTS AT THIS TIME ON ROOM AIR WITH NO SHORTNESS OF BREATH CALL LIGHTS AND PERSONAL BELONGINGS ARE WITHIN EASY REACH BLOOD SUGAR THIS AM IS 141 WHICH CALLS FOR SLIDING SCALE COVERAGE WITH REGULAR INSULIN BUT PATIENT REFUSED COVERAGE ORDERED.PATIENTS RIGHT TO REFUSE RESPECTED WILL OBSERVE FOR S/S OF HYPERGLYCEMIC REACTIONS.
[2021-08-22 07:57] VITALS: BP 144/59
[2021-08-22] MEDS: VALSARTAN 160 MG TABLET PO SCH (08:45)
[2021-08-22] MEDS: DOCUSATE SODIUM 100 MG CAPSULE PO SCH ×2 (08:45→20:01)
[2021-08-22] MEDS: CYANOCOBALAMIN 1000 MCG/ML VIAL IM SCH (08:45)
[2021-08-22] MEDS: HYDROCODONE/APAP 5-325MG TABLET PO PRN (09:31)
--- NOTE | 2021-08-22 09:40 | NUR ---
DR SPRING HERE TO SEE AND EXAMINE PATIENT WITH NO NEW ORDERS AT THIS TIME.
[2021-08-22 15:09] VITALS: BP 128/59
--- NOTE | 2021-08-22 18:00 | NUR ---
PATIENT PARTICIPATED IN THERAPY EXERCISES ORDERED ALERT AND COOPERATIVE WITH NO C/O PAIN AT THIS TIME.
[2021-08-22 20:00] VITALS: BP 131/58
[2021-08-22] MEDS: OLANZAPINE 5 MG TABLET PO SCH (20:01)
[2021-08-22] MEDS: INSULIN REGULAR, HUMAN 300 UNIT/3 ML VIAL SQ PRN (20:02)
[2021-08-22] MEDS: ENOXAPARIN SODIUM 40 MG/0.4 ML DISP.SYRIN SQ SCH (20:03)
[2021-08-23 04:20] VITALS: BP 119/53
[2021-08-23] MEDS: PANTOPRAZOLE SODIUM 40 MG TABLET.DR PO SCH (06:32)
[2021-08-23] MEDS: BLOOD SUGAR DIAGNOSTIC 1 EACH STRIP VI SCH ×4 (06:33→20:30)
[2021-08-23 07:30] VITALS: BP 113/50
[2021-08-23] MEDS: DOCUSATE SODIUM 100 MG CAPSULE PO SCH ×2 (08:36→20:33)
[2021-08-23] MEDS: CYANOCOBALAMIN 1000 MCG/ML VIAL IM SCH (08:36)
[2021-08-23] MEDS: VALSARTAN 160 MG TABLET PO SCH (09:01)
[2021-08-23] MEDS: HYDROCODONE/APAP 5-325MG TABLET PO PRN (10:06)
[2021-08-23] MEDS: FUROSEMIDE 20 MG TABLET PO SCH (10:06)
--- NOTE | 2021-08-23 10:06 | NUR ---
PATIENT IS AWAKE ALERT AND VERBALISED NEEDS REQUESTED FOR NORCO FOR PAIN STATED THAT THE THERAPIST WILL BE HERE FOR HER PHYSICAL THERAPEUTIC EXERCISES ABOUT 1100 MEDICATED ORDERED RIGHT HIP REMAINS INTACT WITH NO DRAINAGE SANDERSON CATHETER REMAINS INTACT DISCUSSION WITH PATIENT REGARDING REMOVING CATH TO SEE IF SHE COULD VOID STATED NOT TODAY WILL CONSIDER TOMORROW WILL ENDORSE TO ASK THE DOCTOR TOMORROW FOR OKAY TO REMOVE CATH.CALL LIGHTS AND PERSONAL BELONGINGS ARE WITHIN EASY REACH AT THIS TIME WILL CONTINUE TO OBSERVE.
[2021-08-23 16:00] VITALS: BP 118/44
--- NOTE | 2021-08-23 17:28 | NUR ---
RESTING IN ROOM DENIES DISCOMFORTS BLOOD SUGAR IS 143 REFUSED REGULAR INSULIN COVERAGE PER SLIDING SCALE NO S/S OF HYPERGLYCEMIC REACTIONS AT THIS TIME WILL CONTINUE TO OBSERVE.
[2021-08-23 19:59] VITALS: BP 104/47
[2021-08-23] MEDS: OLANZAPINE 5 MG TABLET PO SCH (20:29)
[2021-08-23] MEDS: ENOXAPARIN SODIUM 40 MG/0.4 ML DISP.SYRIN SQ SCH (20:30)
[2021-08-23] MEDS: INSULIN REGULAR, HUMAN 300 UNIT/3 ML VIAL SQ PRN (20:39)
[2021-08-24] MEDS: ZOLPIDEM 5 MG TABLET PO PRN (01:50)
[2021-08-24] MEDS: ACETAMINOPHEN 325 MG TABLET PO PRN (01:51)
[2021-08-24 04:28] VITALS: BP 102/45
[2021-08-24] MEDS: PANTOPRAZOLE SODIUM 40 MG TABLET.DR PO SCH (06:01)
[2021-08-24] MEDS: BLOOD SUGAR DIAGNOSTIC 1 EACH STRIP VI SCH ×4 (06:02→20:20)
--- NOTE | 2021-08-24 06:41 | NUR ---
No significant changes overnight. Pt remains AxO x4, cooperative with care. On RA, VSS, afebrile. Tylenol PO given x1 for mild pain with relief. F/C intact and patent. Pt assisted with turning and repositioning. All needs attended, safety precautions maintained at all times. No acute distress noted. Call light within reach.
[2021-08-24 07:30] VITALS: BP 122/50
[2021-08-24] MEDS: INSULIN REGULAR, HUMAN 300 UNIT/3 ML VIAL SQ PRN ×4 (08:13→20:25)
[2021-08-24] MEDS: CYANOCOBALAMIN 1000 MCG/ML VIAL IM SCH (08:14)
[2021-08-24] MEDS: DOCUSATE SODIUM 100 MG CAPSULE PO SCH ×2 (08:15→20:14)
[2021-08-24] MEDS: VALSARTAN 160 MG TABLET PO SCH (08:17)
--- NOTE | 2021-08-24 08:56 | NUR ---
INTERDISCIPLINARY TEAM CONFERENCE
[2021-08-24] MEDS: HYDROCODONE/APAP 5-325MG TABLET PO PRN ×2 (09:44→13:45)
--- NOTE | 2021-08-24 09:49 | NUR ---
Patient awake, alert 0riented x 4 .Patient compliant with medication and care.C/O of pain at right hip pain medicated with pain med as order. On room air, Harrell catheter draining well. incontinent of BM good pericare provided and skin care. Changed and repositioned.Rt hip percutaneous pinning with dressing in place.No bleeding noted.Dressing change done. Safety measures in place, call light within reach. up with PT
[2021-08-24] MEDS ORDERED: HYDROCODONE/APAP 10-325 MG TABLET PO SCH (14:30)
[2021-08-24 16:00] VITALS: BP 107/46
--- NOTE | 2021-08-24 19:25 | NUR ---
Patient resting in bed, AO x 4, able to state all needs. On room air. Gave pt prune juice to help with BM. F/C intact and draining. No complaints or signs of acute distress at this time. Call lights within reach, safety measures initiated. Belongings place by bedside within reach.
[2021-08-24] MEDS: OLANZAPINE 5 MG TABLET PO SCH (20:13)
[2021-08-24] MEDS: ENOXAPARIN SODIUM 40 MG/0.4 ML DISP.SYRIN SQ SCH (20:16)
[2021-08-24] MEDS: MAGNESIUM HYDROXIDE 30 ML LIQUID UDC PO PRN (20:50)
[2021-08-24 20:54] VITALS: BP 101/55
[2021-08-25 04:00] VITALS: BP 118/56
[2021-08-25] MEDS: ACETAMINOPHEN 325 MG TABLET PO PRN ×2 (04:30→06:18)
[2021-08-25] MEDS: BLOOD SUGAR DIAGNOSTIC 1 EACH STRIP VI SCH ×4 (06:22→20:01)
[2021-08-25] MEDS: PANTOPRAZOLE SODIUM 40 MG TABLET.DR PO SCH (06:34)
[2021-08-25 07:43] VITALS: BP 100/44
[2021-08-25] MEDS: CYANOCOBALAMIN 1000 MCG/ML VIAL IM SCH (08:07)
[2021-08-25] MEDS: DOCUSATE SODIUM 100 MG CAPSULE PO SCH ×2 (08:07→20:01)
[2021-08-25] MEDS: HYDROCODONE/APAP 10-325 MG TABLET PO SCH ×3 (08:07→13:46)
[2021-08-25] MEDS: FUROSEMIDE 20 MG TABLET PO SCH (08:08)
[2021-08-25] MEDS: INSULIN REGULAR, HUMAN 300 UNIT/3 ML VIAL SQ PRN ×3 (08:17→16:48)
[2021-08-25] MEDS: VALSARTAN 160 MG TABLET PO SCH (09:00)
[2021-08-25 15:52] VITALS: BP 120/62
[2021-08-25 15:54] VITALS: BP 120/62
--- NOTE | 2021-08-25 18:18 | NUR ---
The patient remained stable during the shift. No acute distress . Medicated with Ada 5/325 BID at 0800 and 1300 ATC as per ordered for pain meds effective up in W/C and ambulated with PT had a shower today, Harrell catheter draining well yellow color urine. Kept call light within reach. Safety precaution maintained. All due meds given. All needs attended. Endorsed to the next shift for continuity of care.
--- NOTE | 2021-08-25 19:30 | NUR ---
Patient resting in bed in semi fowlers position. AAO x3, denies any pain, on RA, No SOB. S/P right hip fracture. Continues on Pt for rehabilitation. No IV access at this time. Safety measures initiated, call light within reach.
[2021-08-25 20:00] VITALS: BP 134/57
[2021-08-25] MEDS: OLANZAPINE 5 MG TABLET PO SCH (20:02)
[2021-08-25] MEDS: ENOXAPARIN SODIUM 40 MG/0.4 ML DISP.SYRIN SQ SCH (20:03)
[2021-08-26 04:00] VITALS: BP 126/52
[2021-08-26] MEDS: PANTOPRAZOLE SODIUM 40 MG TABLET.DR PO SCH (06:32)
[2021-08-26] MEDS: BLOOD SUGAR DIAGNOSTIC 1 EACH STRIP VI SCH ×4 (06:32→20:51)
--- NOTE | 2021-08-26 06:43 | NUR ---
Slept well this shift. Denies any pain or discomfort this shift. In significant events this shift. Call light within reach.
[2021-08-26 07:52] VITALS: BP 111/52
[2021-08-26] MEDS: DOCUSATE SODIUM 100 MG CAPSULE PO SCH ×2 (08:22→20:43)
[2021-08-26] MEDS: CYANOCOBALAMIN 1000 MCG/ML VIAL IM SCH (08:23)
[2021-08-26] MEDS: HYDROCODONE/APAP 10-325 MG TABLET PO SCH ×2 (08:24→13:48)
[2021-08-26] MEDS: VALSARTAN 160 MG TABLET PO SCH (11:08)
[2021-08-26] MEDS: INSULIN REGULAR, HUMAN 300 UNIT/3 ML VIAL SQ PRN ×2 (11:17→20:52)
[2021-08-26 16:15] VITALS: BP 127/44
[2021-08-26 20:37] VITALS: BP 122/50
[2021-08-26] MEDS: ENOXAPARIN SODIUM 40 MG/0.4 ML DISP.SYRIN SQ SCH (20:45)
[2021-08-26] MEDS: OLANZAPINE 5 MG TABLET PO SCH (20:45)
[2021-08-26] MEDS: HYDROCODONE/APAP 5-325MG TABLET PO PRN (20:58)
[2021-08-27 04:30] VITALS: BP 123/48
[2021-08-27] MEDS: PANTOPRAZOLE SODIUM 40 MG TABLET.DR PO SCH (06:39)
[2021-08-27] MEDS: BLOOD SUGAR DIAGNOSTIC 1 EACH STRIP VI SCH ×4 (06:40→20:04)
--- NOTE | 2021-08-27 06:55 | NUR ---
Pt slept throughout the night, easily arousable for care and able to make needs known. Medicated pain x1 and noted effective. All needs attended. Call light placed within reach. Frequent visual checks done. Will endorse to next shift for continuity of care.
[2021-08-27] MEDS: FUROSEMIDE 20 MG TABLET PO SCH (09:03)
[2021-08-27] MEDS: HYDROCODONE/APAP 10-325 MG TABLET PO SCH ×3 (09:03→14:17)
[2021-08-27] MEDS: VALSARTAN 160 MG TABLET PO SCH (09:04)
[2021-08-27] MEDS: CYANOCOBALAMIN 1000 MCG/ML VIAL IM SCH (09:04)
[2021-08-27] MEDS: DOCUSATE SODIUM 100 MG CAPSULE PO SCH ×2 (09:04→20:01)
[2021-08-27 12:06] VITALS: BP 95/46
[2021-08-27 16:06] VITALS: BP 108/54
[2021-08-27] MEDS: SENNOSIDES 1 TABLET PO PRN (19:55)
[2021-08-27] MEDS: OLANZAPINE 5 MG TABLET PO SCH (20:01)
[2021-08-27] MEDS: ENOXAPARIN SODIUM 40 MG/0.4 ML DISP.SYRIN SQ SCH (20:03)
[2021-08-27 20:18] VITALS: BP 100/50
--- NOTE | 2021-08-27 20:48 | NUR ---
Received pt awake on bed with no respiratory distress noted. Senokot PO given, no BM yet. BS checked 141, refused insulin. Riskes and benefits explained, pt still refused stating that her blood sugar is ok and not that high. All needs attended. Call light placed within reach. Frequent visual checks done. Will continue to monitor.
[2021-08-28] MEDS: HYDROCODONE/APAP 5-325MG TABLET PO PRN ×2 (00:05→22:33)
[2021-08-28 04:19] VITALS: BP 121/37
[2021-08-28] MEDS: PANTOPRAZOLE SODIUM 40 MG TABLET.DR PO SCH (06:36)
[2021-08-28] MEDS: BLOOD SUGAR DIAGNOSTIC 1 EACH STRIP VI SCH ×4 (06:37→20:19)
[2021-08-28 06:45] LABS: HEMATOCRIT 34.1 % (31.2-41.9); MEAN CORPUSCULAR HEMOGLOBIN 29.2 uug (24.7-32.8); MEAN CORPUSCULAR VOLUME 86.6 fL (75.5-95.3); PLATELET COUNT (AUTO) 233 K/uL (179-408)
[2021-08-28 07:04] LABS: CREATININE 1.1 mg/dL (0.6-1.3); PHOSPHOROUS 4.4 mg/dL (2.5-4.9); POTASSIUM 4.8 mmol/L (3.5-5.1)
[2021-08-28 07:34] VITALS: BP 107/59
[2021-08-28] MEDS: CYANOCOBALAMIN 1000 MCG/ML VIAL IM SCH (08:10)
[2021-08-28] MEDS: VALSARTAN 160 MG TABLET PO SCH (08:10)
[2021-08-28] MEDS: DOCUSATE SODIUM 100 MG CAPSULE PO SCH ×2 (08:10→20:17)
[2021-08-28] MEDS: HYDROCODONE/APAP 10-325 MG TABLET PO SCH ×2 (08:10→12:51)
[2021-08-28] MEDS: INSULIN REGULAR, HUMAN 300 UNIT/3 ML VIAL SQ PRN ×2 (11:21→20:19)
[2021-08-28 16:01] VITALS: BP 108/46
--- NOTE | 2021-08-28 18:14 | NUR ---
PATIENT REMAINED STABLE DURING THE SHIFT. FREQUENT VISUAL CHECKS DONE. KEPT CALL LIGHT WITHIN REACH. DRESSING CHANGE DONE TO THE RIGHT HIP, INTACT, NO BLEEDING NOTED. ALL DUE MEDS GIVEN ORDERED. ALL NEEDS ATTENDED. SAFETY PRECAUTION MAINTAINED. WILL ENDORSE TO THE NEXT SHIFT FOR CONTINUITY OF CARE.
[2021-08-28 20:12] VITALS: BP 130/56
[2021-08-28] MEDS: MAGNESIUM HYDROXIDE 30 ML LIQUID UDC PO PRN (20:17)
[2021-08-28] MEDS: OLANZAPINE 5 MG TABLET PO SCH (20:17)
[2021-08-28] MEDS: ENOXAPARIN SODIUM 40 MG/0.4 ML DISP.SYRIN SQ SCH (20:18)
--- NOTE | 2021-08-28 20:55 | NUR ---
Received pt resting in bed and watching tv. AAO x4. No acute distress noted. Denies pain/ discomfort. Blood sugar 121, no insulin coverage given as per sliding scale. Due meds given as ordered. Safety measures maintained. Call light within reach. Will continue to monitor.
[2021-08-29 04:29] VITALS: BP 123/53
[2021-08-29] MEDS: PANTOPRAZOLE SODIUM 40 MG TABLET.DR PO SCH (06:33)
[2021-08-29] MEDS: BLOOD SUGAR DIAGNOSTIC 1 EACH STRIP VI SCH ×4 (06:36→20:42)
[2021-08-29 08:00] VITALS: BP 135/62
[2021-08-29] MEDS: FUROSEMIDE 20 MG TABLET PO SCH (08:40)
[2021-08-29] MEDS: DOCUSATE SODIUM 100 MG CAPSULE PO SCH ×2 (08:42→20:42)
[2021-08-29] MEDS: VALSARTAN 160 MG TABLET PO SCH (08:42)
[2021-08-29] MEDS: HYDROCODONE/APAP 10-325 MG TABLET PO SCH ×2 (08:44→12:51)
[2021-08-29] MEDS: INSULIN REGULAR, HUMAN 300 UNIT/3 ML VIAL SQ PRN ×2 (11:32→20:43)
[2021-08-29 11:57] VITALS: BP 135/62
--- NOTE | 2021-08-29 14:30 | NUR ---
Received an order from Kannan Vines DNP with order to remove acosta catheter. Acosta catheter removed and patient tolerated well. She remains alert, oriented x 4, not in any form of distress, on room air. She denies any pain or discomfort at this time. Will continue to monitor.
[2021-08-29 16:00] VITALS: BP 114/42
--- NOTE | 2021-08-29 19:30 | NUR ---
Patient resting in bed in semi fowlers position. AAO x3, denies any pain, on RA, No SOB. S/P right hip fracture. Continues on Pt for rehabilitation. No IV access at this time. States she urinated around 1830, Day shift nurse changed her diaper. No BAD pain, ABD is flat and non tender. Safety measures initiated, call light within reach.
[2021-08-29 20:15] VITALS: BP 118/59
[2021-08-29] MEDS: OLANZAPINE 5 MG TABLET PO SCH (20:42)
[2021-08-29] MEDS: ENOXAPARIN SODIUM 40 MG/0.4 ML DISP.SYRIN SQ SCH (21:01)
[2021-08-30 04:13] VITALS: BP 113/50
[2021-08-30] MEDS: PANTOPRAZOLE SODIUM 40 MG TABLET.DR PO SCH (06:34)
[2021-08-30] MEDS: BLOOD SUGAR DIAGNOSTIC 1 EACH STRIP VI SCH (06:39)
--- NOTE | 2021-08-30 06:45 | NUR ---
Patient slept well this shift. Denies any pain or discomfort. Needs attended, call light within reach.
[2021-08-30 08:00] VITALS: BP 137/53
[2021-08-30] MEDS: DOCUSATE SODIUM 100 MG CAPSULE PO SCH ×2 (08:32→21:07)
[2021-08-30] MEDS: HYDROCODONE/APAP 10-325 MG TABLET PO SCH ×2 (08:32→12:09)
[2021-08-30] MEDS: VALSARTAN 160 MG TABLET PO SCH (08:33)
--- NOTE | 2021-08-30 08:45 | NUR ---
RECEIVED PATIENT AWAKE ALERT AND ORIENTED ON ROUTINE NORCO FOR PAIN AND HELPFUL RIGHT HIP WITH DRESSING DRY AND INTACT NO DRAINAGE AT THIS TIME NO SHORTNESS OF BREATH NOT IN DISTRESS AT THIS TIME WILL CONTINUE TO OBSERVE.
--- NOTE | 2021-08-30 09:52 | NUR ---
NEW ORDERS NOTED FROM DR MARTINEZ WILL CONTINUE TO OBSERVE.
--- NOTE | 2021-08-30 10:00 | NUR ---
DR SPRING HERE SEEN PATIENT WITH NO NEW ORDERS AT THIS TIME.
[2021-08-30 16:00] VITALS: BP 109/40
--- NOTE | 2021-08-30 16:10 | NUR ---
ORDER FOR RIGHT HIP XRAY RECHECK RECEIVED AND CARRIED OUT.
--- NOTE | 2021-08-30 18:00 | NUR ---
RESTING DENIES DISCOMFORTS NOT IN DISTRESS AT THIS TIME CALL LIGHTS AND HER PERSONAL BELONGINGS ARE WITHIN EASY REACH AT THIS TIME WILL CONTINUE TO OBSERVE AND PROVIDE COMFORT.
[2021-08-30 20:13] VITALS: BP 113/84
[2021-08-30] MEDS: OLANZAPINE 5 MG TABLET PO SCH (21:07)
[2021-08-30] MEDS: ENOXAPARIN SODIUM 40 MG/0.4 ML DISP.SYRIN SQ SCH (21:11)
[2021-08-30] MEDS: HYDROCODONE/APAP 5-325MG TABLET PO PRN (22:41)
--- NOTE | 2021-08-30 22:44 | NUR ---
MEDICATED FOR C/O PAIN IN HER RIGHT HIP ORDERED PATIENT STATED HER LAST BOWEL MOVEMENT WAS 3 DAYS AGO OFFERED TO GIVE HER LAXATIVE BUT SHE STATED SHE WANTS TO SLEEP AND NOT BE GETTING UP TO MOVE HER BOWEL PREFERS TO TAKE A LAXATIVE IN THE MORNING WILL OFFER EARLY AM.
[2021-08-31 04:13] VITALS: BP 112/46
[2021-08-31] MEDS ORDERED: SENNOSIDES 1 TABLET PO PRN (05:45)
[2021-08-31] MEDS ORDERED: BISACODYL 10 MG SUPP.RECT RC PRN (05:45)
[2021-08-31] MEDS ORDERED: MAGNESIUM HYDROXIDE 30 ML LIQUID UDC PO PRN (05:45)
--- NOTE | 2021-08-31 06:30 | NUR ---
STATED WILL TAKE HER LAXATIVE LATER WANTS TO SLEEP MORE AT THIS TIME
[2021-08-31] MEDS: PANTOPRAZOLE SODIUM 40 MG TABLET.DR PO SCH (06:32)
[2021-08-31] MEDS: VALSARTAN 160 MG TABLET PO SCH (09:19)
[2021-08-31] MEDS: FUROSEMIDE 20 MG TABLET PO SCH (09:19)
[2021-08-31] MEDS: HYDROCODONE/APAP 10-325 MG TABLET PO SCH ×2 (09:19→13:17)
[2021-08-31] MEDS: DOCUSATE SODIUM 100 MG CAPSULE PO SCH ×2 (09:19→20:03)
--- NOTE | 2021-08-31 11:56 | NUR ---
INTERDISCIPLINARY TEAM CONFERENCE
[2021-08-31 12:00] VITALS: BP 105/43
[2021-08-31 16:00] VITALS: BP 109/55
--- NOTE | 2021-08-31 18:03 | NUR ---
NO DISTRESS OR CONCERN IDENTIFIED DURING THE SHIFT. ALL NEEDS ATTENDED. ROUTINE MEDS GIVEN FOR PAIN. KEPT CALL LIGHT WITHIN REACH. FREQUENT VISUAL CHECKS DONE. WILL ENDORSE TO THE NEXT SHIFT FOR CONTINUITY OF CARE.
[2021-08-31] MEDS: OLANZAPINE 5 MG TABLET PO SCH (20:03)
[2021-08-31] MEDS: ENOXAPARIN SODIUM 40 MG/0.4 ML DISP.SYRIN SQ SCH (20:04)
[2021-08-31 20:44] VITALS: BP 106/49
[2021-09-01] MEDS: ACETAMINOPHEN 325 MG TABLET PO PRN (01:24)
[2021-09-01 05:00] VITALS: BP 120/47
--- NOTE | 2021-09-01 05:43 | NUR ---
Slept throughout the night. Denies pain or SOB. Able to make needs known. Call light kept within reach. Safety and comfort provided. Will endorse to day shift.
[2021-09-01] MEDS: PANTOPRAZOLE SODIUM 40 MG TABLET.DR PO SCH (06:32)
[2021-09-01 08:06] VITALS: BP 160/44
[2021-09-01] MEDS: DOCUSATE SODIUM 100 MG CAPSULE PO SCH ×2 (08:27→20:16)
[2021-09-01] MEDS: VALSARTAN 160 MG TABLET PO SCH (08:27)
[2021-09-01] MEDS: HYDROCODONE/APAP 10-325 MG TABLET PO SCH ×2 (08:27→12:27)
[2021-09-01 12:00] VITALS: BP 117/49
[2021-09-01 16:00] VITALS: BP 130/58
[2021-09-01] MEDS: ENOXAPARIN SODIUM 40 MG/0.4 ML DISP.SYRIN SQ SCH (20:16)
[2021-09-01] MEDS: OLANZAPINE 5 MG TABLET PO SCH (20:16)
[2021-09-01 20:25] VITALS: BP 119/67
--- NOTE | 2021-09-02 00:57 | NUR ---
CONTINUE PLAN OF CARE Addendum: 09/02/21 at 0058 by SONIA PONCE RN Amended: Robe shah. Addendum: 09/02/21 at 0059 by SONIA PONCE RN Amended: Robe shah. Addendum: 09/02/21 at 0100 by SONIA PONCE RN Amended: Links added. Addendum: 09/02/21 at 0101 by SONIA PONCE RN Amended: Links added. Addendum: 09/02/21 at 0103 by SONIA PONCE RN Amended: Links added. Addendum: 09/02/21 at 0105 by LAYDA ROSRAIO RN Amended: Links added. Addendum: 09/02/21 at 0106 by SONIA PONCE RN Amended: Links added.
--- NOTE | 2021-09-02 01:01 | NUR ---
CONTINUE PLAN OF CARE Addendum: 09/02/21 at 0103 by SONIA PONCE RN Amended: Robe shah. Addendum: 09/02/21 at 0105 by SONIA PONCE RN Amended: Robe shah. Addendum: 09/02/21 at 0106 by SONIA PONCE RN Amended: Links added.
[2021-09-02 04:20] VITALS: BP 147/62
[2021-09-02] MEDS: PANTOPRAZOLE SODIUM 40 MG TABLET.DR PO SCH (06:14)
[2021-09-02 08:00] VITALS: BP 128/53
--- NOTE | 2021-09-02 08:00 | NUR ---
Patient resting in bed. AAO x3, denies any pain, on RA, No SOB. S/P right hip closed percutaneous pinning. Continues on Pt for rehabilitation. No IV access at this time. incontinent of B&B voiding well, used diapers. , ABD is soft and non tender. Safety measures initiated, call light within reach.
[2021-09-02] MEDS: HYDROCODONE/APAP 10-325 MG TABLET PO SCH ×3 (08:36→14:18)
[2021-09-02] MEDS: DOCUSATE SODIUM 100 MG CAPSULE PO SCH (09:10)
[2021-09-02] MEDS: FUROSEMIDE 20 MG TABLET PO SCH (09:10)
[2021-09-02] MEDS: VALSARTAN 160 MG TABLET PO SCH (09:22)
[2021-09-02 16:00] VITALS: BP 123/50
--- NOTE | 2021-09-02 16:50 | NUR ---
Pt discharged to [facility] report given to Shanel SALVADOR. All discharged instruction and all personal belongings given to patient ,arm ID band removed PT Left in medical stable condition was transferred via [facility] ambulance accompany by 3 estate planning paralegal
[2021-09-03] MEDS ORDERED: CYANOCOBALAMIN 1000 MCG/ML VIAL IM SCH (09:00)
[2021-10-25] MEDS ORDERED: CYANOCOBALAMIN 1000 MCG/ML VIAL IM SCH (09:00)
== END 2021-09-02 16:50 | DRG 559 ==
PROVIDERS: ADMIT Physical Medicine & Rehabilitation Pain Medicine; ATTEND Physical Medicine & Rehabilitation Pain Medicine
DX: S72.011D Unspecified intracapsular fracture of right femur, subsequent encounter for closed fracture with routine healing (principal); E43 Unspecified severe protein-calorie malnutrition; I50.33 Acute on chronic diastolic (congestive) heart failure; N39.0 Urinary tract infection, site not specified; F20.0 Paranoid schizophrenia; D68.59 Other primary thrombophilia; W19.XXXD Unspecified fall, subsequent encounter; E11.9 Type 2 diabetes mellitus without complications; M79.7 Fibromyalgia; E53.8 Deficiency of other specified B group vitamins; E66.9 Obesity, unspecified; Z68.30 Body mass index [BMI] 30.0-30.9, adult; I11.0 Hypertensive heart disease with heart failure; I70.0 Atherosclerosis of aorta
CPT/HCPCS: 36415; 73501; 83735; 84100; 84443; 85025; 97161; A4663; A6209; J0696; J1650; J1815; J3420; J3490; J7040; J7060